=== PATIENT | male | born 1990 ===

== ENCOUNTER 2018-09-12 | Inpatient (IN) | payer OTHER | END 2018-09-21 14:22 | disposition home or self-care (01) | DRG 751 | PROVIDERS: ADMIT Psychiatry & Neurology Psychiatry | PROC: GZ3ZZZZ Medication Management (ICD-10-PCS; principal; 2018-09-12) | PROC: HZ89ZZZ Medication Management for Substance Abuse Treatment, Other Replacement Medication (ICD-10-PCS; 2018-09-12) | PROC: GZ56ZZZ Individual Psychotherapy, Supportive (ICD-10-PCS; 2018-09-12) | PROC: 0HQDXZZ Repair Right Lower Arm Skin, External Approach (ICD-10-PCS; 2018-09-12) ==